=== PATIENT | female | born 1985 | race Caucasian/White ===

== ENCOUNTER 2020-07-20 10:08 | Emergency (ER) | payer MEDICAID ==
[~2020-07-20] VITALS: Ht 160 cm; Wt 77.1 kg
[2020-07-20 10:10] VITALS: BP 131/87; Ht 160 cm; Wt 77.1 kg
== END 2020-07-20 10:40 | disposition left against medical advice (07) ==
LOC: ED 10:08
DX: H92.01 Otalgia, right ear (principal); Z02.79 Encounter for issue of other medical certificate